=== PATIENT | male | born 1935 | race Caucasian/White ===

== ENCOUNTER 2023-01-29 17:48 | Emergency (ER) | payer OTHER ==
[~2023-01-29] VITALS: Ht 172.7 cm; Wt 59.0 kg
[~2023-01-29 17:48] MED LIST: ATOR10TA PO; CEPH-558; ESOM40CA; FOLI1TAB15; LABE200T83; LISI10TA PO; MULT-805; VITA1TAB20
[2023-01-29 17:56] VITALS: TEMP 98.7
[2023-01-29] MEDS ORDERED: LABETALOL HCL 5 MG/ML 20 ML VIAL IVP PRN ×2 (18:00)
[2023-01-29 18:24] LABS: BASOPHILS % (AUTO) 0.5 % (0.0-2.0); EOSINOPHILS % (AUTO) 1.3 % (1.0-6.0); HEMATOCRIT 28.3 % (41-53); HEMOGLOBIN 9.3 g/dL (13.5-17.5); LYMPHOCYTES # (AUTO) 2.7 K/uL (1.0-4.8); LYMPHOCYTES % (AUTO) 18.5 % (22.0-44.0); MEAN CORPUSCULAR HEMOGLOBIN 29.4 pg (26.0-34.0); MEAN CORPUSCULAR VOLUME 89 fL (80-100); MONOCYTES # (AUTO) 0.9 K/uL (0.1-1.0); MONOCYTES % (AUTO) 5.9 % (2.0-9.0); NEUTROPHILS # (AUTO) 10.8 K/uL (1.8-7.7); NEUTROPHILS % (AUTO) 73.8 % (40.0-70.0); PLATELET COUNT (AUTO) 209 K/uL (150-450); RED BLOOD CELL COUNT(AUTO) 3.17 MIL/uL (4.50-5.90); RED CELL DISTRIBUTION WIDTH 15.9 % (11.5-14.5); WHITE BLOOD COUNT (AUTO) 14.7 K/uL (4.5-11.0)
[2023-01-29] MEDS ORDERED: SODIUM CHLORIDE 0.9% 100 ML ONE (18:24)
[2023-01-29] MEDS ORDERED: IOHEXOL 350 MG/ML 100 ML VIAL ONE (18:24)
[2023-01-29] MEDS ORDERED: SODIUM CHLORIDE 0.9% 1,000 ML IV ONE (18:30)
[2023-01-29 18:33] LABS: ANION GAP 12 mmol/L (8-16); CALCIUM, TOTAL 9.3 mg/dL (8.8-10.5); CARBON DIOXIDE 22 mmol/L (22-29); CHLORIDE 107 mmol/L (98-107); CREATININE 0.96 mg/dL (0.60-1.30); GLOMERULAR FILTR. RATE CALC > 60 mL/min (>60); GLUCOSE,RANDOM 128 mg/dL (70-110); POTASSIUM 3.9 mmol/L (3.5-5.1); SODIUM SERUM 141 mmol/L (136-145); UREA NITROGEN, BLOOD 17 mg/dL (7-18)
[2023-01-29 18:37] LABS: PROTHROMBIN TIME 10.9 SEC (9.4-11.6)
[2023-01-29 18:39] LABS: ALANINE AMINOTRANSFERASE 8 U/L (12-78); ALBUMIN 3.7 g/dL (3.4-5.0); ALKALINE PHOSPHATASE 88 U/L (46-116); ASPARTATE AMINOTRANSFERASE 14 U/L (15-37); BILIRUBIN,TOTAL 0.4 mg/dL (0.1-1.0); TOTAL PROTEIN, SERUM 7.4 g/dL (6.4-8.2)
[2023-01-29 18:41] LABS: TROPONIN I-HIGH SENSITIVITY 10 ng/L (<76)
[2023-01-29] MEDS ORDERED: FINA-27 PO (19:12)
[2023-01-29] MEDS ORDERED: TAMS0.4C34 PO (19:12)
[2023-01-29] MEDS ORDERED: LISI-894 PO (19:12)
[2023-01-29] MEDS ORDERED: CLOP75TA60 PO (19:12)
[2023-01-29] MEDS ORDERED: AMLO-258 PO (19:12)
[2023-01-29] MEDS ORDERED: NITR0.3T12 SL (19:12)
[2023-01-29] MEDS ORDERED: ATOR10TA PO (19:12)
[2023-01-29] MEDS ORDERED: GABA-1181 PO (19:12)
[2023-01-29] MEDS ORDERED: METO25 PO (19:12)
[2023-01-29] MEDS ORDERED: ESOM20CA31 PO (19:12)
[2023-01-29 19:14] LABS: COVID AG,FIA SOURCE NASAL SWAB
[2023-01-29 19:32] LABS: SARS-COV2 (COVID) ANTIGEN,FIA Negative (Negative)
[2023-01-29 20:00] LABS: APPEARANCE,URINE TURBID (CLEAR); BILIRUBIN,URINE NEGATIVE (NEGATIVE); COLOR,URINE YELLOW (YELLOW); GLUCOSE, URINE (UA) NEGATIVE (NEGATIVE); KETONES,URINE NEGATIVE (NEGATIVE); LEUKOCYTE ESTERASE ,URINE LARGE (NEGATIVE); NITRATE,URINE POSITIVE (NEGATIVE); OCCULT BLOOD,URINE MODERATE (NEGATIVE); PROTEIN,URINE 100-200,SEE CONFIRM mg/dL (NEGATIVE); SPECIFIC GRAVITIY, URINE 1.043 (1.003-1.030); UROBILINOGEN,URINE <=1.0 mg/dL (<=1.0)
[2023-01-29 20:04] LABS: ALCOHOL, URINE DRUG SCREEN NEGATIVE (NEGATIVE); AMPHET/METH SCREEN,URINE NEGATIVE (NEGATIVE); BARBITURATE SCREEN, URINE NEGATIVE (NEGATIVE); BENZODIAZEPINES SCREEN,URINE NEGATIVE (NEGATIVE); CANNABINOID SCREEN,URINE NEGATIVE (NEGATIVE); COCAINE SCREEN,URINE NEGATIVE (NEGATIVE); METHADONE SCREEN, URINE NEGATIVE (NEGATIVE); OPIATE SCREEN,URINE NEGATIVE (NEGATIVE); PHENCYCLIDINE SCREEN,URINE NEGATIVE (NEGATIVE)
[2023-01-29 20:22] LABS: BACTERIA,URINE Many /HPF (None Seen); SQUAMOUS EPITHELIAL CELL,UR None Seen /LPF (None Seen); WBC,URINE >100 /HPF (0-5)
[2023-01-29 20:24] LABS: SULFOSALICYLIC ACID,URINE 2+ (Negative)
[2023-01-29] MEDS ORDERED: CefTRIAXone 1 GM/DEXTROSE 50 ML IV ONE (20:30)
[2023-01-29 21:30] VITALS: BP 147/60; PULSE 70; RESP 20
== END 2023-01-29 22:21 | disposition short-term general hospital (02) ==
LOC: EMS 17:54
DX: I95.9 Hypotension, unspecified (principal); I63.9 Cerebral infarction, unspecified; R53.1 Weakness; N39.0 Urinary tract infection, site not specified; Z20.822 Contact with and (suspected) exposure to COVID-19
CPT/HCPCS: 99291; 70496; 96365; 71045; 96361; 87426; 80053; 81001; 83605; 84484; 85025; 85610; 85730; 86850; 86900; 86901; 36415; 87086; 87186; 70498; 82948; 93005; 80307; 70450; J0696; Q9967; J7030; J7050; 81002